=== PATIENT | female | born 1970 | race Caucasian/White ===

== ENCOUNTER 2017-02-27 14:06 | Outpatient (CLI) | payer BC ==
--- NOTE | 2017-02-27 15:56 | MMO ---
BILATERAL SCREENING MAMMOGRAMS: DATE: 02/27/17 Reference made to prior mammograms dating back to August 2012. This patient's mammogram was interpreted with the assistance of computer-aided detection. FINDINGS: There are scattered fibroglandular elements bilaterally. Benign-appearing calcifications of each adriana ast are stable in appearance, without evidence of a new dominant mass or architectural distortion. IMPRESSION: BIRADS 2: Benign Finding(s) Annual screening mammography is recommended. POS: R[facility]
== END 2017-02-27 14:07 | disposition home or self-care (01) ==
LOC: SCSMAMMO 14:06
PROVIDERS: ATTEND Obstetrics & Gynecology
DX: Z12.31 Encounter for screening mammogram for malignant neoplasm of breast (principal)
CPT/HCPCS: 77067; G0202

== ENCOUNTER 2017-06-04 16:38 | Outpatient (CLI) | payer BC | END 2017-06-04 16:39 | disposition home or self-care (01) | LOC: BICMAMMO 16:38 | PROVIDERS: ATTEND Obstetrics & Gynecology | DX: Z13.820 Encounter for screening for osteoporosis (principal); M85.80 Other specified disorders of bone density and structure, unspecified site | CPT/HCPCS: 77080 ==

== ENCOUNTER 2018-06-16 15:47 | Outpatient (CLI) | payer BC | END 2018-06-16 15:48 | disposition home or self-care (01) | LOC: BICMAMMO 15:47 | PROVIDERS: ATTEND Obstetrics & Gynecology | DX: Z12.31 Encounter for screening mammogram for malignant neoplasm of breast (principal) | CPT/HCPCS: 77063; 77067 ==

== ENCOUNTER 2020-01-29 09:17 | Day surgery (SDC) | payer BC ==
[2020-01-29] MEDS ORDERED: Heparin 5,000 UNITS/ML VIAL ONE (09:44)
[2020-01-29] MEDS ORDERED: Esmolol 100 MG/10 ML VIAL ONE (09:48)
[2020-01-29] MEDS ORDERED: PROPOFOL 200 MG/20 ML VIAL ONE (09:48)
[2020-01-29] MEDS ORDERED: Ondansetron PF 4 MG/2 ML Vial ONE (09:48)
[2020-01-29] MEDS ORDERED: Lidocaine 1% PF 5 ML VIAL ONE (09:48)
[2020-01-29] MEDS ORDERED: Dexamethasone 20 MG/5 ML VIAL ONE (09:48)
[2020-01-29] MEDS ORDERED: Bupivacaine 0.25% HCL 30 ML VIAL ONE ×2 (10:01→10:03)
[2020-01-29] MEDS ORDERED: EPINEPHrine 1 MG/ML AMP ONE (10:01)
[2020-01-29] MEDS ORDERED: Famotidine 20 MG TAB ONE (10:29)
[2020-01-29] MEDS ORDERED: Fentanyl 100 MCG/2 ML VIAL ONE (10:44)
[2020-01-29] MEDS ORDERED: Midazolam HCl 2 mg/2 ml Vial ONE (10:44)
[2020-01-29] MEDS ORDERED: Famotidine/PF 20 mg/2ml Vial ONE (10:44)
[2020-01-29] MEDS ORDERED: HYDROmorphone 2 MG/ML VIAL ONE (13:28)
[2020-01-29] MEDS ORDERED: HYDROcodone/Acetaminophen 5/325 mg Tablet ONE (16:36)
--- NOTE | 2020-01-29 17:01 | OP ---
DATE OF PROCEDURE: 01/29/2020 PREOPERATIVE DIAGNOSIS: Macromastia. POSTOPERATIVE DIAGNOSIS: Macromastia. PROCEDURE: Bilateral breast reduction (05980.50). DESCRIPTION OF PROCEDURE: Following induction of adequate anesthesia, the patient was prepped and draped in the usual sterile fashion in the supine position. The patient has been preoperatively marked for a modified Pierson pattern breast reduction. The nipple was circumcised around a 42 mm nipple sizer. The skin over the inferior pole of the breast was de-epithelialized, skin flaps superiorly, medially and laterally. Dermoglandular units were resected superiorly, medially, and laterally to sculpt the breast pedicle taking care to preserve viability and sensibility. The field was copiously irrigated and inspected for meticulous hemostasis prior to closure of the inverted T with interrupted 3-0 PDS suture and running 3-0 Monocryl suture. The nipple was brought out through a 42 mm nipple defect and similarly inset. A similar procedure was done on each side. Job ID: [id number]
== END 2020-01-29 17:15 | disposition home or self-care (01) ==
LOC: SDC 09:17 → EEVIPCON 09:17 → SDC 17:15
PROVIDERS: ATTEND Plastic Surgery
PROC: 0H0V0ZZ Alteration of Bilateral Breast, Open Approach (ICD-10-PCS; principal; 2020-01-29)
DX: N62 Hypertrophy of breast (principal); N60.22 Fibroadenosis of left breast; N60.21 Fibroadenosis of right breast; E06.3 Autoimmune thyroiditis; Z79.899 Other long term (current) drug therapy; Z88.6 Allergy status to analgesic agent; Z88.8 Allergy status to other drugs, medicaments and biological substances; Z85.850 Personal history of malignant neoplasm of thyroid
CPT/HCPCS: 88305; J0171; J0690; J1100; J1170; J1644; J2250; J2405; J2704; J3010; S0020; S0028

== ENCOUNTER 2020-10-04 16:59 | Outpatient (CLI) | payer BC | END 2020-10-04 17:00 | disposition home or self-care (01) | LOC: TBSIIMAG 16:59 | PROVIDERS: ATTEND Surgery | DX: M47.26 Other spondylosis with radiculopathy, lumbar region (principal) | CPT/HCPCS: 72148 ==

== ENCOUNTER 2022-07-17 16:04 | Outpatient (CLI) | payer BC ==
[2022-07-17 16:45] LABS: #Monocytes 0.4 10x3/uL (0.0-1.1); #Neutrophils 2.4 10x3/uL (1.5-8.4); %Basophils 0.2 % (0.0-2.0); %Lymphocytes 34.2 % (18.0-47.0); %Monocytes 9.1 % (0.0-10.0); %Neutrophils 56.3 % (40.0-75.0); Hemoglobin 12.2 g/dL (12.0-15.5); Mean Corpuscular HGB CONC 33.2 g/dL (32.0-36.0); Mean Corpuscular Hemoglobin 30.9 pg (27.0-33.0); Mean Corpuscular Volume 92.9 fl (81.6-98.3); Mean Platelet Volume 9.5 fl (7.4-10.4); Platelet Count 250 10x3/uL (150-450); RBC Distribution Width 12.9 % (11.5-14.5); Red Blood Cell (RBC) Count 3.95 10x6/uL (3.90-5.03); White Blood Cell (WBC) Count 4.2 10x3/uL (3.5-10.5)
[2022-07-17 17:00] LABS: Anion Gap 13 mmol/L (10-20); BUN (Urea Nitrogen) 18 mg/dL (9.8-20.1); Calc. Creatinine Clearance 0 mL/min (70-130); Calcium 9.9 mg/dL (7.8-10.44); Carbon Dioxide 24 mmol/L (22-29); Chloride 107 mmol/L (98-107); Estimated GFR 84; Glucose 93 mg/dL (70-105); Potassium 3.9 mmol/L (3.5-5.1); Sodium 140 mmol/L (136-145)
== END 2022-07-17 16:05 | disposition home or self-care (01) ==
LOC: LABBT 16:04
PROVIDERS: ATTEND Surgery
DX: Z01.812 Encounter for preprocedural laboratory examination (principal)
CPT/HCPCS: 80048; 85025

== ENCOUNTER 2022-07-24 08:19 | Day surgery (SDC) | payer BC ==
[2022-07-20 16:14] VITALS: BMI 26.3
[2022-07-24] MEDS ORDERED: Bupivacaine/Epinephrine 0.25% 30 ML VIAL ONE (11:09)
[2022-07-24] MEDS ORDERED: fentaNYL PF 100 MCG/2 ML SYRINGE ONE (11:56)
[2022-07-24] MEDS ORDERED: CEFAZOLIN 1 GM VIAL ONE (12:07)
[2022-07-24] MEDS ORDERED: NEOSTIGMINE 3 MG/3 ML SYR 3 MG/3 ML SYRINGE ONE (12:15)
[2022-07-24] MEDS ORDERED: Glycopyrrolate 0.2 MG/ML 5 ML SYRINGE ONE (12:15)
[2022-07-24] MEDS ORDERED: Dexamethasone 20 MG/5 ML VIAL ONE (12:15)
[2022-07-24] MEDS ORDERED: PROPOFOL 200 MG/20 ML VIAL ONE (12:15)
[2022-07-24] MEDS ORDERED: Lidocaine 1% PF 5 ML VIAL ONE (12:15)
[2022-07-24] MEDS ORDERED: Rocuronium Bromide 10 MG/ML (10ML VIAL) ONE (12:15)
[2022-07-24] MEDS ORDERED: Ondansetron PF 4 MG/2 ML Vial ONE (12:15)
[2022-07-24] MEDS ORDERED: Fentanyl 100 MCG/2 ML VIAL ONE (13:46)
[2022-07-24] MEDS ORDERED: HYDROcodone/Acetaminophen 5/325 mg Tablet ONE (15:13)
[2022-07-24] MEDS ORDERED: Ondansetron ODT 4 MG TAB ONE (15:32)
== END 2022-07-24 16:16 | disposition home or self-care (01) ==
LOC: SDC 08:19
PROVIDERS: ATTEND Surgery
PROC: 0JBC0ZZ Excision of Pelvic Region Subcutaneous Tissue and Fascia, Open Approach (ICD-10-PCS; principal; 2022-07-24)
PROC: 0YU54JZ Supplement Right Inguinal Region with Synthetic Substitute, Percutaneous Endoscopic Approach (ICD-10-PCS; principal; 2022-07-24)
PROC: 8E0W4CZ Robotic Assisted Procedure of Trunk Region, Percutaneous Endoscopic Approach (ICD-10-PCS; principal; 2022-07-24)
DX: K40.90 Unilateral inguinal hernia, without obstruction or gangrene, not specified as recurrent (principal); M79.89 Other specified soft tissue disorders; E89.0 Postprocedural hypothyroidism; M19.90 Unspecified osteoarthritis, unspecified site; Z85.850 Personal history of malignant neoplasm of thyroid; Z79.1 Long term (current) use of non-steroidal anti-inflammatories (NSAID); Z79.84 Long term (current) use of oral hypoglycemic drugs; Z79.890 Hormone replacement therapy; Z79.899 Other long term (current) drug therapy; Z88.6 Allergy status to analgesic agent; Z88.8 Allergy status to other drugs, medicaments and biological substances
CPT/HCPCS: 88304; C1781; J0690; J1100; J2405; J2704; J3010; Q0162